=== PATIENT | male | born 1960 | race Caucasian/White ===

== ENCOUNTER → 2020-12-29 | Outpatient (CLI) | payer BC ==
--- NOTE | 2020-12-29 16:08 | MR ---
EXAMINATION TYPE: MR knee RT wo con DATE OF EXAM: 12/29/2020 COMPARISON: None HISTORY: Right knee pain, painful kneecap, and swelling for 3 years. History of meniscus repair 13 ye ars ago. Multiplanar multiecho imaging of the right knee without contrast. The anterior posterior cruciate ligaments are intact. There is small knee joint effusion. The collate ral ligaments appear intact. The lateral meniscus is intact. There is large horizontal tear through the posterior horn of the medi al meniscus extending to the inferior surface. There is slight narrowing of the medial joint space. T here is 5 mm rounded area of increased signal on the T2 images in the medial subchondral tibial condy le. This is consistent with a small degenerative cyst formation. The patella is intact. There is no evidence of a fracture. I see no focal bone destruction. IMPRESSION: Large horizontal tear posterior horn of the medial meniscus. Small joint effusion. Mild osteoarthritic changes medial joint space. No significant patella abnormal ity.
== END | disposition home or self-care (01) ==
LOC: RADMRIMAIN 10:21
PROVIDERS: ATTEND Orthopaedic Surgery
DX: S83.241A Other tear of medial meniscus, current injury, right knee, initial encounter (principal); X58.XXXA Exposure to other specified factors, initial encounter

== ENCOUNTER → 2021-01-23 | Outpatient (CLI) | payer BC | END | disposition home or self-care (01) | LOC: LABMAIN 17:04 | DX: Z53.9 Procedure and treatment not carried out, unspecified reason (principal) ==

== ENCOUNTER 2021-02-13 08:51 | Day surgery (SDC) | payer BC ==
[2021-02-06 15:23] VITALS: BMI 31.6
--- NOTE | 2021-02-12 10:12 | HP ---
HISTORY AND PHYSICAL REASON FOR ADMISSION: Surgery scheduled for 02/13/2021 HISTORY OF PRESENT ILLNESS: Shashi Hsieh is a 62-year-old gentleman seen with progressive right knee pain. We discussed options for treatment. He elected to proceed with arthroscopy. Consent was obtained. PAST MEDICAL HISTORY: Crohn's disease, [id number]-[id number] diabetes. PAST SURGICAL HISTORY: Right knee arthroscopy. MEDICATIONS ARE: Entyvio, metformin, Jardiance. ALLERGIES: CODEINE AND MORPHINE. SOCIAL HISTORY: Denies tobacco use. PHYSICAL EVALUATION OF THE RIGHT KNEE: Range of motion 0-125. Mild effusion. Calf tenderness along medial joint line. Tenderness along the lateral joint line. Positive medial Imani's. Positive lateral Imani's. Ligaments stable. Hip rotation without pain. Distal neurovascular exam intact. RADIOGRAPHS: Right knee radiographs revealed moderate osteoarthritic changes. Right knee MRI revealed a large medial meniscal tear. IMPRESSION: 1. Internal derangement of right knee with medial meniscal tear. 2. Uuv-iheyzae-cadlewfav diabetes. 3. Crohn's disease. PLAN: Right knee arthroscopy with partial meniscectomy and debridement. Surgery scheduled 02/13/2021. MMODL / IJN: [id number] /
[~2021-02-13 08:51] MED LIST: DEXAMETHASONE SOD PHOSPHATE 4 MG/ML 1 ML VIAL IV ONE; LACTATED RINGERS 1,000 ML IV SCH; LIDOCAINE 1% (10MG/ML) FOR IV START INTRADERMA PRN; MIDAZOLAM 2 MG/2 ML VIAL IV PRN; ONDANSETRON 4 MG/2 ML VIAL IVP ONE
[2021-02-13 10:14] LABS: Glucose,Whole Blood 183 mg/dL (75-99)
[2021-02-13 10:36] LABS: Anisocytosis Slight; Basophils % (A) 1 %; Eosinophils # (A) 0.2 k/uL (0-0.7); Eosinophils % (A) 7 %; HCT 33.2 % (39.0-53.0); HGB 11.5 gm/dL (13.0-17.5); Lymphocytes # (A) 0.6 k/uL (1.0-4.8); Lymphocytes % (A) 18 %; MCH 33.9 pg (25.0-35.0); MCHC 34.5 g/dL (31.0-37.0); MCV 98.1 fL (80.0-100.0); Macrocytosis Slight; Mean Platelet Volume 9.9; Monocytes # (A) 0.2 k/uL (0-1.0); Monocytes % (A) 7 %; Neutrophils % (A) 65 %; RBC 3.38 m/uL (4.30-5.90); RDW 17.3 % (11.5-15.5)
[2021-02-13] MEDS ORDERED: BUPIVACAINE (PF) 0.25% 30 ML VIAL SQ ONE (10:36)
[2021-02-13] MEDS ORDERED: PROPOFOL 10 MG/ML 20 ML VIAL IV ONE (10:43)
[2021-02-13] MEDS ORDERED: LABETALOL 5 MG/ML VIAL MDV ONE (10:43)
[2021-02-13] MEDS ORDERED: fentaNYL (PF) 50 MCG/ML 2 ML AMP ONE (10:43)
[2021-02-13] MEDS ORDERED: MIDAZOLAM 2 MG/2 ML VIAL ONE (10:43)
[2021-02-13] MEDS ORDERED: LIDOCAINE 1% INJ 10MG/ML (20 ML MDV) ONE (10:43)
[2021-02-13 11:03] LABS: Potassium 4.6 mmol/L (3.5-5.1)
[2021-02-13 11:23] LABS: Platelet Count 72 k/uL (150-450)
--- NOTE | 2021-02-13 11:50 | P.OP ---
Date of Procedure: 02/13/21 Preoperative Diagnosis: Internal derangement right knee Postoperative Diagnosis: 1. Tear medial meniscus right knee 2. Grade 2/3 chondromalacia medial femoral condyle right knee 3. 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 Reactive synovitis medial, lateral and suprapatellar compartments right knee Procedure(s) Performed: 1. Arthroscopic partial medial meniscectomy right knee 2. Arthroscopic chondroplasty medial femoral condyle right knee 3. Arthroscopic chondroplasty femoral sulcus right knee 4. Arthroscopic partial synovectomy medial, lateral and suprapatellar compartments right knee Anesthesia: SUYAPAA, local Surgeon: Jacques Squires Estimated Blood Loss (ml): 7 Pathology: none sent Condition: stable Disposition: PACU Indications for Procedure: 60-year-old patient seen with progressive right knee pain. After treatment options were discussed, he elected to proceed with arthroscopy. Operative Findings: see description of procedure Description of Procedure: Patient was taken to the operative suite. Patient underwent a general anesthetic by the department of anesthesia. Patient was given preoperative antibiotics. The right lower extremity was placed in a well-padded arthroscopic leg paredes. The right leg was prepped and draped in the normal sterile orthopedic fashion. A lateral parapatellar and suprapatellar incision was made. Trochars were inserted. Arthroscopy was initiated. Suprapatellar pouch revealed diffuse thick reactive synovitis. The patellofemoral joint appeared to articulate congruently. There was grade 2 chondromalacia of the patella and grade 3 chondromalacia of the femoral sulcus with some diffuse osteochondral tears present. The scope was guided into the medial gutter. No loose bodies or plica were identified. The scope was then guided into the medial compartment. A medial parapatellar incision was made. Trocar inserted followed by probe. There was a complex tear involving the posterior horn and midbody of the medial meniscus. There were grade 2 chondromalacia changes of the medial femoral condyle with some osteochondral tears present. There was a small area of grade 4 chondromalacia along the medial aspect tibial plateau with there was thick reactive synovitis anteriorly. I performed a partial medial meniscectomy getting down to stable meniscal tissue. I performed a chondroplasty of the medial femoral condyle getting down to stable osteochondral tissue. I performed a partial synovectomy decompressing reactive synovitis. The residual meniscus now was probed and found to be stable. The residual osteochondral surface remained stable. There was good decompression of the synovitis. Scope and probe were then guided into the intercondylar notch. Cruciates were identified, probed and found to be stable. The scope and probe were then guided into lateral compartment. The lateral meniscus was found to be stable with some mild superficial fraying midbody area. There were mild grade 1 chondromalacia changes lateral compartment with no tears. There was some reactive synovitis anteriorly. I introduced a motorized shaver and debrided out that area superficial fraying midbody lateral meniscus. I performed a partial synovectomy decompressing thick reactive synovitis. Shaver was removed. There was good decompression of the synovitis. The scope was in guided back into the suprapatellar compartment. I introduced a motorized shaver into the super compartment. I debrided some piecemeal fragments of meniscus that I encountered. I performed a chondroplasty of the femoral sulcus getting down to stable osteochondral tissue. I performed a partial synovectomy decompressing thick reactive synovitis. Shaver was removed. There was good decompression of synovitis. The residual osteochondral surface appeared stable again noted grade 3 chondromalacia of the femoral sulcus and grade 2 chondral malacia the patella. Instruments were now removed from the joint. The joint was infiltrated with .25% Marcaine. Steri-Strips were applied to the portal sites. Sterile dressings were applied. The patient was placed into a RODRIGO hose. No tourniquet was utilized. The patient was awakened, transferred to a bed and taken to recovery stable satisfactory condition.
[2021-02-13 11:57] VITALS: TEMP 97
[2021-02-13] MEDS: HYDROmorphone 0.5 MG/0.5 ML SYRINGE IVP PRN ×2 (12:24→12:33)
[2021-02-13] MEDS ORDERED: KETOROLAC 15 MG/ML 1 ML VIAL IVP ONE (12:25)
[2021-02-13] MEDS ORDERED: KETOROLAC 15 MG/ML 1 ML VIAL ONE (12:26)
[2021-02-13 13:28] VITALS: RESP 16
[2021-02-13] MEDS ORDERED: HYDROcodone/APAP 5-325MG 1 EACH TAB ONE (13:29)
[2021-02-13] MEDS ORDERED: HYDROcodone/APAP 5-325MG 1 EACH TAB PO ONE (13:34)
[2021-02-13 14:29] VITALS: BP 125/75; PULSE 85
== END 2021-02-13 14:45 | disposition home or self-care (01) ==
LOC: OR 08:51
PROVIDERS: ATTEND Orthopaedic Surgery
DX: M23.91 Unspecified internal derangement of right knee (principal); S83.241A Other tear of medial meniscus, current injury, right knee, initial encounter; M94.261 Chondromalacia, right knee; M65.9 Synovitis and tenosynovitis, unspecified; K50.90 Crohn's disease, unspecified, without complications; E11.9 Type 2 diabetes mellitus without complications; Z79.899 Other long term (current) drug therapy; Z79.84 Long term (current) use of oral hypoglycemic drugs; Z88.5 Allergy status to narcotic agent; I10 Essential (primary) hypertension; E78.5 Hyperlipidemia, unspecified
CPT/HCPCS: 80051; 85025; 29881; 29876; J2250; J1100; J0690; J2405; J2001; J3010; J1885; J2704; J1170

== ENCOUNTER 2021-02-14 | Emergency (ER) | payer BC ==
[2021-02-14 00:12] VITALS: BP 124/60; PULSE 80; RESP 18; TEMP 97.7
[2021-02-14] MEDS ORDERED: LIDOCAINE 1%-EPI 1:100,000 20 ML VIAL SQ STA (00:59)
--- NOTE | 2021-02-14 01:21 | ED ---
Wound/Laceration HPI - General Chief Complaint: Wound/Laceration Stated Complaint: post op incision bleeding Time Seen by Provider: 02/14/21 00:51 Source: patient, RN notes reviewed Mode of arrival: ambulatory Limitations: no limitations - History of Present Illness Initial Comments: 60-year-old male presents emergency Department with chief complaint of bleeding from incision sites on his right knee. Patient had meniscus repair by Dr. Squires today. Patient contacted [facility] on-call and recommended the patient unresponsive for suture placement as a Steri-Strips or not closing the wounds. Patient denies any fevers chills no increasing pain no other complaints. - Related Data Home Medications Medication Instructions Recorded Confirmed Carvedilol [Coreg] 3.125 mg PO DAILY 02/06/21 02/13/21 Empagliflozin [Jardiance] 10 mg PO DAILY 02/06/21 02/13/21 Liraglutide [Saxenda] 0.5 mg SQ DAILY 02/06/21 02/13/21 Losartan Potassium [Cozaar] 25 mg PO DAILY 02/06/21 02/13/21 Multivitamins, Thera [Multivitamin 1 tab PO DAILY 02/06/21 02/13/21 (formulary)] Pantoprazole [Protonix] 40 mg PO DAILY PRN 02/06/21 02/13/21 Simvastatin 10 mg PO DAILY 02/06/21 02/13/21 metFORMIN HCL [Glucophage] 1,000 mg PO DAILY 02/06/21 02/13/21 Entyvio Infusion IV DIRECTED 02/08/21 Previous Rx's Medication Instructions Recorded HYDROcodone/APAP 5-325MG [[place] 1 tab PO Q6HR PRN #12 tab 02/13/21 5-325] Allergies Allergy/AdvReac Type Severity Reaction Status Date / Time codeine Allergy Rapid Verified 02/14/21 00:12 Heart Rate morphine Allergy Chest Verified 02/14/21 00:12 Pain, RAPID BREATH, SHORTNESS OF BREATH Review of Systems ROS Statement: Those systems with pertinent positive or pertinent negative responses have been documented in the HPI. ROS Other: All systems not noted in ROS Statement are negative. Past Medical History Past Medical History: Diabetes Mellitus, Hypertension History of Any Multi-Drug Resistant Organisms: None Reported Past Surgical History: Orthopedic Surgery Past Psychological History: No Psychological Hx Reported Smoking Status: Never smoker Past Alcohol Use History: Occasional Past Drug Use History: None Reported General Exam Limitations: no limitations General appearance: alert, in no apparent distress Head exam: Present: atraumatic, normocephalic, normal inspection Respiratory exam: Present: normal lung sounds bilaterally. Absent: respiratory distress, wheezes, rales, rhonchi, stridor Cardiovascular Exam: Present: regular rate, normal rhythm, normal heart sounds. Absent: systolic murmur, diastolic murmur, rubs, gallop, clicks Extremities exam: Present: other (Right knee to half centimeter incisions are noted with mild bleeding neurovascular intact mild swelling to the right knee) Course Vital Signs 02/14/21 00:08 Temperature 97.7 F Pulse Rate 80 Respiratory 18 Rate Blood Pressure 124/60 O2 Sat by Pulse 96 Oximetry Procedures - Laceration Laceration #1 Consent Obtained: verbal consent Indication: laceration Site: lower extremity Size (cm): 0 (0.5) Description: linear Depth: simple, single layer Anesthetic Used: lidocaine 1%, with epi Anesthesia Technique: local infiltration Amount (mls): 2 Pre-repair: wound explored, irrigated extensively, deep structures intact Type of Sutures: nylon Size of Sutures: 4-0 Number of Sutures: 1 Technique: simple, interrupted Patient Tolerated Procedure: well, no complications Laceration #2 Consent Obtained: verbal consent Indication: laceration Site: lower extremity Size (cm): 0 (0.5) Description: linear Depth: simple, single layer Anesthetic Used: lidocaine 1%, with epi Anesthesia Technique: local infiltration Amount (mls): 2 Pre-repair: irrigated extensively, deep structures intact Type of Sutures: nylon Size of Sutures: 4-0 Number of Sutures: 1 Technique: simple, interrupted Patient Tolerated Procedure: well, no complications Medical Decision Making - Medical Decision Making Area was thoroughly cleaned, suture placed and needs incision area was dressed, stocking was replaced Disposition Clinical Impression: Bleeding from wound Disposition: HOME SELF-CARE Condition: Stable Instructions (If sedation given, give patient instructions): Care For Your Stitches (ED), Acute Wound Care (ED) Additional Instructions: Please return to the Emergency Department if symptoms worsen or any other concerns. Is patient prescribed a controlled substance at d/c from ED?: No Referrals: Nonstaff,Physician [Primary Care Provider] - 1-2 days Time of Disposition: 01:21
== END 2021-02-14 01:25 | disposition home or self-care (01) ==
LOC: EC
DX: L76.22 Postprocedural hemorrhage of skin and subcutaneous tissue following other procedure (principal); E11.9 Type 2 diabetes mellitus without complications; I10 Essential (primary) hypertension; Z79.84 Long term (current) use of oral hypoglycemic drugs; Z79.899 Other long term (current) drug therapy
CPT/HCPCS: 12001; 99283

== ENCOUNTER → 2021-06-12 | Outpatient (CLI) | payer BC ==
--- NOTE | 2021-06-13 04:07 | MR ---
EXAMINATION TYPE: MR shoulder RT wo con DATE OF EXAM: 06/12/2021 COMPARISON: None HISTORY: Multiplanar multi echo imaging of the right shoulder without contrast. There is spurring at the AC joint and mild subacromial impingement on the supraspinatus muscle. There is a linear area of increased signal in the posterior glenoid labrum suggestive of tear. The anterio r labrum appears intact. Biceps tendon is intact. The subscapularis tendon is intact. There is mild t hickening of the supraspinatus tendon at the greater tuberosity humerus. I see no definite full-thick ness tear. There is no retraction. IMPRESSION: There is some edema and slight thickening of the supraspinatus tendon consistent with tendinitis. No definite full-thickness tear. Spurring at the AC joint and mild subacromial impingement. There is evidence of a posterior glenoid l abral tear.
== END | disposition home or self-care (01) ==
LOC: RADMRIMAIN 12:49
PROVIDERS: ATTEND Orthopaedic Surgery
DX: S43.431A Superior glenoid labrum lesion of right shoulder, initial encounter (principal); M25.711 Osteophyte, right shoulder; M75.41 Impingement syndrome of right shoulder; M67.813 Other specified disorders of tendon, right shoulder; X58.XXXA Exposure to other specified factors, initial encounter